=== PATIENT | female | born 1965 | race Caucasian/White ===

== ENCOUNTER 2016-08-21 02:23 | Inpatient (IN) | payer MEDICARE, MEDICAID ==
--- NOTE | 2016-08-21 03:14 | ED ---
General Adult HPI - General Chief complaint: Psychiatric Symptoms Stated complaint: Mental Health Time Seen by Provider: 08/21/16 02:25 Source: patient, EMS, RN notes reviewed, old records reviewed Mode of arrival: EMS Limitations: no limitations - History of Present Illness Initial comments: This is a 50-year-old female ER for evaluation psychiatric disease, positive suicidal thoughts, positive alcohol, patient does have history of psychiatric disease, multiple hospital admissions for psychiatric evaluation and treatment, patient has been taking all medications as prescribed, patient's poor strain secondary to intoxicated state, history obtained from EMS PD and patient chart -: days(s) Treatments Prior to Arrival: none - Related Data Home Medications Medication Instructions Recorded Confirmed ALPRAZolam [Xanax] 1 mg PO TID PRN 10/15/15 08/21/16 Aspirin 81 mg PO DAILY 10/15/15 08/21/16 Budesonide/Formoterol Fumarate 2 puff INHALATION RT-BID 10/15/15 08/21/16 [Symbicort 160-4.5 Mcg Inhaler] Clobetasol Propionate [Temovate] 1 applic TOPICAL BID 10/15/15 08/21/16 Omeprazole [PriLOSEC] 20 mg PO DAILY 10/15/15 08/21/16 Dicyclomine [Bentyl] 20 mg PO QID 08/21/16 08/21/16 Loperamide [Imodium] 4 mg PO QID 08/21/16 08/21/16 Meclizine HCl 25 mg PO TID PRN 08/21/16 08/21/16 QUEtiapine XR [SEROquel XR] 150 mg PO BID 08/21/16 08/21/16 buPROPion HCL [Wellbutrin XL] 150 mg PO DAILY 08/21/16 08/21/16 buPROPion HCL [Wellbutrin XL] 300 mg PO DAILY 08/21/16 08/21/16 cloNIDine HCL [Catapres] 0.1 mg PO BID@0600,1200 08/21/16 08/21/16 Allergies Allergy/AdvReac Type Severity Reaction Status Date / Time trazodone Allergy Anaphylaxis Verified 08/21/16 10:37 sertraline HCl [From Zoloft] AdvReac Rapid Verified 08/21/16 10:37 Heart Rate Patient : No Review of Systems ROS Statement: Those systems with pertinent positive or pertinent negative responses have been documented in the HPI. ROS Other: All systems not noted in ROS Statement are negative. Past Medical History Past Medical History: COPD, Hyperlipidemia Additional Past Medical History / Comment(s): psoriasis History of Any Multi-Drug Resistant Organisms: None Reported Past Surgical History: Section Additional Past Surgical History / Comment(s): cervical ablation, D&C, borderline personality disorder, self harm Past Anesthesia/Blood Transfusion Reactions: No Reported Reaction Past Psychological History: Anxiety, Depression, Panic Disorder Additional Psychological History / Comment(s): Personality disorder, history of cutting Smoking Status: Current every day smoker Past Alcohol Use History: Daily, Heavy Additional Past Alcohol Use History / Comment(s): Patient is a smoker of 30 cigarettes per day as she rolls her own. She has been smoking for 33 years. She denies any medical marijuana, marijuana, street drug use. She states she drinks alcohol about 2 times per month and each time she drinks to excess. Past Drug Use History: None Reported - Past Family History Father Family Medical History: No Reported History Additional Family Medical History / Comment(s): Patient does not know her father. Mother Family Medical History: Hypertension Additional Family Medical History / Comment(s): Mother is alive at age 70 with history of hypertension. Brother(s) Additional Family Medical History / Comment(s): She has one brother committed suicide. Sister(s) Additional Family Medical History / Comment(s): She has 2 sisters one has had hypertension and hysterectomy. Second sister has no major medical problems. Patient has 2 sons are healthy. General Exam Limitations: no limitations General appearance: alert, in no apparent distress, appears intoxicated Head exam: Present: atraumatic, normocephalic, normal inspection Eye exam: Present: normal appearance, PERRL, EOMI. Absent: scleral icterus, conjunctival injection, periorbital swelling ENT exam: Present: normal exam, mucous membranes moist Neck exam: Present: normal inspection. Absent: tenderness, meningismus, lymphadenopathy Respiratory exam: Present: normal lung sounds bilaterally. Absent: respiratory distress, wheezes, rales, rhonchi, stridor Cardiovascular Exam: Present: regular rate, normal rhythm, normal heart sounds. Absent: systolic murmur, diastolic murmur, rubs, gallop, clicks GI/Abdominal exam: Present: soft, normal bowel sounds. Absent: distended, tenderness, guarding, rebound, rigid Extremities exam: Present: normal inspection, full ROM, normal capillary refill. Absent: tenderness, pedal edema, joint swelling, calf tenderness Back exam: Present: normal inspection Neurological exam: Present: alert, oriented X3, CN II-XII intact Psychiatric exam: Present: normal affect, normal mood Skin exam: Present: warm, dry, intact, normal color. Absent: rash Course Vital Signs 08/21/16 08/21/16 08/21/16 02:38 06:39 08:05 Temperature 97.0 F L Pulse Rate 90 83 95 Respiratory 16 16 15 Rate Blood Pressure 152/95 128/78 147/97 O2 Sat by Pulse 99 95 93 L Oximetry Medical Decision Making - Medical Decision Making 50 female seen and evaluated by psychiatry, will be admitted for psychiatric evaluation and treatment Disposition Clinical Impression: Mood disorder, Depression, Suicidal ideation Disposition: TRANSFER TO PSYCH HOSP/UNIT Condition: Fair
[2016-08-21] MEDS ORDERED: ACETAMINOPHEN TAB 500 MG TAB PO STA (08:03)
[2016-08-21] MEDS ORDERED: IBUPROFEN 600 MG TAB PO PRN (09:41)
[2016-08-21] MEDS ORDERED: MAGNESIUM HYDROXIDE 2,400 MG/10 ML CUP PO PRN (09:43)
[2016-08-21] MEDS ORDERED: MAG HYDROX/AL HYDROX/SIMETH 30 ML CUP PO PRN (09:43)
[2016-08-21] MEDS ORDERED: buPROPion XL 300 MG TAB.ER.24H PO SCH (09:45)
[2016-08-21] MEDS ORDERED: buPROPion XL 150 MG TAB.ER.24H PO SCH (10:00)
[2016-08-21] MEDS: PANTOPRAZOLE 40 MG TABLET PO SCH ×2 (11:22→19:18)
[2016-08-21] MEDS: NICOTINE 14MG/24HR PATCH TRANSDERM SCH (11:22)
[2016-08-21] MEDS: CLOBETASOL PROP 0.05% CR 15GM TOPICAL SCH ×2 (11:22→21:35)
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
[2016-08-21] MEDS: GABAPENTIN 300 MG CAP PO SCH ×3 (11:29→21:58)
[2016-08-21] MEDS: ALPRAZolam 0.5 MG TAB PO PRN ×2 (11:30→21:35)
[2016-08-21] MEDS ORDERED: cloNIDine HCL 0.1 MG TAB PO SCH (12:00)
[2016-08-21] MEDS: DICYCLOMINE 20 MG TAB PO SCH ×3 (12:22→21:35)
[2016-08-21 12:54] LABS: Appearance,Urine Clear (Clear); Bilirubin,Urine Negative (Negative); Glucose,Urine (UA) Negative (Negative); Ketones,Urine Negative (Negative); Leukocyte Esterase,Urine Negative (Negative); Nitrite,Urine Negative (Negative); Protein,Urine Negative (Negative); Specific Gravity,Urine 1.005 (1.001-1.035); UA Billing (MACRO vs. MICRO) CHEM; Urobilinogen,Urine <2.0 mg/dL (<2.0)
--- NOTE | 2016-08-21 15:32 | CT ---
EXAMINATION TYPE: CT brain wo con DATE OF EXAM: 08/21/2016 3:27 PM COMPARISON: NONE HISTORY: 50-year-old female with facial numbness and left eye pain TECHNIQUE: Examination was done in axial plane without intravenous contrast. Coronal and sagittal reconstructio ns performed. CT DLP: 1072.3 mGycm Automated exposure control for dose reduction was used. FINDINGS: Scattered streak and beam hardening artifact such as along the posterior left parietal region and inf erior left temporal region. Within this limitation, there is no evidence of acute intracranial hemorrhage, acute ischemic change s, mass, mass-effect, or extra-axial fluid collection. There is no effacement of cerebral sulci or b emanuel subarachnoid cisterns. There is no hydrocephalus. There is no midline shift. Purcell-white matte r distinction is preserved. Paranasal sinuses and mastoid air cells are well pneumatized. Orbits and globes are intact. IMPRESSION: No acute intracranial abnormality seen.
--- NOTE | 2016-08-21 15:41 | US ---
EXAMINATION TYPE: US carotid duplex BILAT DATE OF EXAM: 08/21/2016 3:32 PM COMPARISON: NONE CLINICAL HISTORY: US. TIA, pt has no complaints at this time Mild plaque seen of the bilateral carotid bulbs. EXAM MEASUREMENTS: RIGHT: Peak Systolic Velocity (PSV) cm/sec ----- Right CCA: 72.3 ----- Right ICA: 84.5 ----- Right ECA: 143.6 ICA/CCA ratio: 1.2 RIGHT: End Diastole cm/sec ----- Right CCA: 23.5 ----- Right ICA: 34.0 ----- Right ECA: 24.1 LEFT: Peak Systolic Velocity (PSV) cm/sec ----- Left CCA: 88.9 ----- Left ICA: 97.7 ----- Left ECA: 84.0 ICA/CCA ratio: 1.1 LEFT: End Diastole cm/sec ----- Left CCA: 26.3 ----- Left ICA: 38.4 ----- Left ECA: 11.5 VERTEBRALS (direction of flow): Right Vertebral: Antegrade Left Vertebral: Antegrade IMPRESSION: No significant stenosis seen Pt moving and talking during exam Criteria for Assigning % of Stenosis / Diameter reduction (Estimation based on the indirect measurements of the internal carotid artery velocities (ICA PSV). 1. Normal (no stenosis)=ICA PSV < 125 cm/s: ratio < 2.0: ICA EDV<40 cm/s. 2. Less than 50% stenosis=ICA PSV < 125 cm/s: ratio < 2.0: ICA EDV<40 cm/s. 3. 50 to 69% stenosis=ICA PSV of 125 to 230 cm/s: ration 2.0 ? 4.0: ICA EDV 40-100 cm/s. 4. Greater than 70% stenosis to near occlusion= ICA PSV > 230 cm/s: ratio > 4.0: ICA EDV > 100 cm/s. 5. Near occlusion= ICA PSV velocities may be low or undetectable: variable ratio and ICA EDV. 6. Total occlusion=unable to detect flow.
[2016-08-21] MEDS ORDERED: hydrOXYzine PAMOATE 25 MG CAP PO STA (16:14)
[2016-08-21] MEDS: ATORVASTATIN 40 MG TAB PO SCH (20:41)
[2016-08-21] MEDS: SYMBICORT 160-4.5 MCG INHALER INHALATION SCH (21:20)
[2016-08-21] MEDS ORDERED: IBUPROFEN 400 MG TAB PO PRN (23:09)
--- NOTE | 2016-08-22 07:39 | CONS ---
DATE OF CONSULTATION: REASON FOR CONSULTATION: Left-sided facial numbness as well as left arm numbness. The patient is a 50-year-old female admitted to the psychiatric floor for severe depression. The patient is complaining of severe tingling on the left side of the face along with numbness in the left upper arm. The patient denied any fever, chills. Patient denied any nausea, vomiting. Patient denied any significant weakness. The patient denied nay other focal deficits at this point of time. Patient is not anxious, but she says she is quite anxious and patient was also complaining of nonspecific abdominal pain. Patient is already on Prilosec. Patient has multitude of symptoms consistent with psychosomatic disorder. REVIEW OF SYSTEMS: The rest of the review of systems are negative except the above mentioned symptoms. Patient's UA is negative. Past medical history is significant for COPD, psoriasis, hyperlipidemia. section, cervical ablation, anxiety, depression, panic disorder. Patient does smoke 30 cigarettes per day. Denied any alcohol abuse or any drug abuse. FAMILY HISTORY: Patient does not know any of her family history. Home medications include: 1. Alprazolam. 2. Aspirin. 3. Budesonide formoterol. 4. Clobetasol. 5. Dicyclomine. 6. Loperamide. 7. Meclizine. 8. Omeprazole. 9. Seroquel. 10. Bupropion. 11. Clonidine. PHYSICAL EXAMINATION: VITAL SIGNS: Temperature 97.7, pulse 95, respiratory rate 20, blood pressure 147/97, saturating at 94% on room air. GENERAL: The patient is alert and oriented x3, not in any acute distress. Well developed, well nourished. HEENT: Pupils are round and equally reacting to light. EOMI. No scleral icterus. No conjunctival pallor. Normocephalic, atraumatic. No pharyngeal erythema. No thyromegaly. CARDIOVASCULAR: S1 and S2 present. No murmurs, rubs, or gallops. PULMONARY: Chest is clear to auscultation, no wheezing or crackles. ABDOMEN: Soft, nontender, nondistended, normoactive bowel sounds. No palpable organomegaly. MUSCULOSKELETAL: No joint swelling or deformity. EXTREMITIES: No cyanosis, clubbing, or pedal edema. NEUROLOGICAL: Gross neurological examination did not reveal any focal deficits. SKIN: No rashes. LABORATORY DATA: Urine drug screen is positive for benzodiazepines and tricyclic antidepressants. Brain CT is essential within normal limits. Carotid Doppler is negative. ASSESSMENT AND PLAN: 1. Tingling and numbness of left side of face and left arm. I believe her symptoms are mostly psychosomatic. I do not believe any further intervention is necessary at this point of the time. The patient is already on aspirin ( ). 2. Nonspecific abdominal pain is psychosomatic again. I do not believe it is related to gastroenteritis. Patient does have irritable bowel syndrome history. Dicyclomine can be used and Imodium can be used for symptoms. 3. Severe depression and psychosis, management as per primary service. 4. Chronic obstructive pulmonary disease without any acute exacerbation. Continue with budesonide formoterol and albuterol as needed. I agree with continuation of clonidine, which contributes to her depression quite a bit. I will also order albuterol as needed for her COPD, although she probably will not require it at this point of time. Thank you for letting me participate in this patient's care. Will sign off at this point of time. Call us back if needed.
[2016-08-22] MEDS: buPROPion XL 300 MG TAB.ER.24H PO SCH (08:12)
[2016-08-22] MEDS: GABAPENTIN 300 MG CAP PO SCH ×3 (08:12→20:45)
[2016-08-22] MEDS: NICOTINE 14MG/24HR PATCH TRANSDERM SCH (08:12)
[2016-08-22] MEDS: ASPIRIN 81 MG CHEW PO SCH (08:12)
[2016-08-22] MEDS: DICYCLOMINE 20 MG TAB PO SCH ×4 (08:12→20:45)
[2016-08-22] MEDS: PANTOPRAZOLE 40 MG TABLET PO SCH (08:12)
[2016-08-22] MEDS: ALPRAZolam 0.5 MG TAB PO PRN ×3 (08:13→21:59)
[2016-08-22 09:36] LABS: Basophils % (A) 1 %; CH 29.1; CHCM 31.8; Eosinophils % (A) 0 %; HCT 40.9 % (34.0-46.0); HDW 2.71; HGB 12.6 gm/dL (11.4-16.0); Hypochromasia Slight; Luc # (Auto) 0.08; Luc % (Auto) 1; Lymphocytes # (A) 1.2 k/uL (1.0-4.8); Lymphocytes % (A) 19 %; MCH 28.3 pg (25.0-35.0); MCHC 30.8 g/dL (31.0-37.0); MCV 91.8 fL (80.0-100.0); Mean Platelet Volume 7.6; Monocytes # (A) 0.3 k/uL (0-1.0); Monocytes % (A) 5 %; Neutrophils # (A) 4.8 k/uL (1.3-7.7); Neutrophils % (A) 75 %; RBC 4.45 m/uL (3.80-5.40); RDW 14.8 % (11.5-15.5); WBC 6.5 k/uL (3.8-10.6); WBC (Perox) 6.54
[2016-08-22] MEDS: CLOBETASOL PROP 0.05% CR 15GM TOPICAL SCH ×2 (09:46→20:45)
[2016-08-22] MEDS: SYMBICORT 160-4.5 MCG INHALER INHALATION SCH ×2 (09:52→19:38)
[2016-08-22] MEDS: IPRATROPIUM-ALBUTEROL 3 ML NEB INHALATION PRN (09:52)
[2016-08-22 10:22] LABS: ALT 35 U/L (9-52); AST 35 U/L (14-36); Alkaline Phosphatase 93 U/L (38-126); Anion Gap 12 mmol/L; Blood Urea Nitrogen 11 mg/dL (7-17); Calcium 9.5 mg/dL (8.4-10.2); Carbon Dioxide 29 mmol/L (22-30); Chloride 103 mmol/L (98-107); Glucose 160 mg/dL (74-99); Non-African American GFR(MDRD) >60 (>60 ml/min/1.73 sqM); Potassium 3.9 mmol/L (3.5-5.1); Sodium 144 mmol/L (137-145); Total Bilirubin 0.7 mg/dL (0.2-1.3); Total Protein 7.6 g/dL (6.3-8.2)
--- NOTE | 2016-08-22 11:47 | P.PN ---
Progress Note - Text Interval history: The patient is found in the hallway she follows me to an interview room. She states that she felt acutely anxious last evening and the seconds handler ordered a head CT and carotid Dopplers as she complained of facial numbness. These studies were essentially normal. She does continue to be somatically preoccupied. I did have the opportunity to speak with her outpatient clinician Alecia Lynne to discuss continued medication management. Mental status exam: The patient is an overweight female she has a disheveled appearance she is dressed in hospital gowns. Eye contact is appropriate she is cooperative. Speech is spontaneous fluent she is verbose but directable. She endorses a depressed mood with hopelessness thinking she endorses significant concern over anxiety symptoms. She is endorsing no homicidal ideation. She does not present hypomanic or manic today there is no report of psychotic symptoms. Insight and judgment is impaired. She is oriented to person place and date. Plan: The patient will continue on her current medications we will initiate Pristiq 50 mg daily. We will plan to transition her off of Wellbutrin XL. We will continue the Neurontin Seroquel and Xanax. We will monitor her for safety and encourage her participation in the milieu. Vital signs reviewed. Dr. Monzon will provide coverage for this patient over the weekend.
[2016-08-22] MEDS: ACETAMINOPHEN TAB 325 MG TAB PO PRN (18:26)
[2016-08-22] MEDS: ATORVASTATIN 40 MG TAB PO SCH (20:45)
[2016-08-23] MEDS: DESVENLAFAXINE SUCCINATE 50 MG TAB.ER.24H PO SCH (08:33)
[2016-08-23] MEDS: NICOTINE 14MG/24HR PATCH TRANSDERM SCH (08:33)
[2016-08-23] MEDS: PANTOPRAZOLE 40 MG TABLET PO SCH (08:34)
[2016-08-23] MEDS: GABAPENTIN 300 MG CAP PO SCH ×3 (08:34→20:33)
[2016-08-23] MEDS: DICYCLOMINE 20 MG TAB PO SCH ×4 (08:34→20:33)
[2016-08-23] MEDS: buPROPion XL 300 MG TAB.ER.24H PO SCH (08:34)
[2016-08-23] MEDS: CLOBETASOL PROP 0.05% CR 15GM TOPICAL SCH ×2 (08:34→20:33)
[2016-08-23] MEDS: ASPIRIN 81 MG CHEW PO SCH (08:34)
[2016-08-23] MEDS: SYMBICORT 160-4.5 MCG INHALER INHALATION SCH ×2 (08:48→17:27)
[2016-08-23] MEDS: ACETAMINOPHEN TAB 325 MG TAB PO PRN (08:52)
[2016-08-23 11:12] VITALS: BMI 36.1
[2016-08-23] MEDS: IPRATROPIUM-ALBUTEROL 3 ML NEB INHALATION PRN (12:09)
[2016-08-23] MEDS ORDERED: NITROGLYCERIN SL TABS 0.4 MG TAB SUBLINGUAL STA (12:36)
[2016-08-23] MEDS: ALPRAZolam 0.5 MG TAB PO PRN ×2 (13:11→21:40)
[2016-08-23] MEDS: LACTOBACILLUS ACIDOPH & BULGAR 1 EACH PACKET PO SCH (13:23)
[2016-08-23] MEDS: MULTIVITAMINS, THERA 1 EACH TAB PO SCH (13:23)
[2016-08-23] MEDS: CHOLECALCIFEROL 1,000 UNIT TAB PO SCH (13:23)
[2016-08-23] MEDS ORDERED: INFLUENZA VACCINE (3YR+) 60 MCG/0.5 ML SYRINGE IM ONE (17:30)
--- NOTE | 2016-08-23 17:33 | PN ---
Patient is a 50-year-old admitted to psychiatric floor. I was recalled to see the patient because of the chest pain. Patient has ( ) chest pain in the midsternal area radiating to the left arm. I obtained an EKG which showed some nonspecific ST depressions in the inferior leads lead II and lead III which were not present on the old EKGs. I repeated the EKG which showed the same depression. First set of troponin is negative. Patient is known to have psychosomatic issues. I still believe it psychosomatic or anxiety related but because of these depressions I recommended consulting cardiology. The patient was given Xanax which improved her symptoms of chest pain. REVIEW OF SYSTEMS: CARDIOVASCULAR: As described in HPI. PULMONARY: Denied any shortness of breath. No cough or hemoptysis. GASTROINTESTINAL: No diarrhea, nausea or vomiting. No abdominal pain. Normoactive bowel sounds. NEUROLOGIC: No headaches, no weakness, no numbness. Psychiatric as described in HPI. Medications are reviewed. PHYSICAL EXAM: Temperature 97.0, pulse of 92, respiratory rate of 14, blood pressure 126/81. Saturating at 96% on room air. GENERAL: The patient is alert and oriented x3, not in any acute distress. Well developed, well nourished. HEENT: Pupils are round and equally reacting to light. EOMI. No scleral icterus. No conjunctival pallor. Normocephalic, atraumatic. No pharyngeal erythema. No thyromegaly. CARDIOVASCULAR: S1 and S2 present. No murmurs, rubs, or gallops. PULMONARY: Chest is clear to auscultation, no wheezing or crackles. ABDOMEN: Soft, nontender, nondistended, normoactive bowel sounds. No palpable organomegaly. MUSCULOSKELETAL: No joint swelling or deformity. EXTREMITIES: No cyanosis, clubbing, or pedal edema. NEUROLOGICAL: Gross neurological examination did not reveal any focal deficits. SKIN: No rashes. LABORATORY DATA: CBC, CMP are abnormal for mildly elevated TSH. I will obtain a T4 level. Mildly low TSH, I will obtain a T4 level. ASSESSMENT AND PLAN: 1. Chest pain and management as above. 2. Tingling and numbness when I evaluated her a couple days ago, but this is psychogenic I believe. Tingling and numbness of the left side arm and face, psychogenic. 3. Severe depression and psychosis. 4. Chronic obstructive pulmonary disease without any acute exacerbation. 5. Anxiety disorder. Management as mentioned in the interval history.
--- NOTE | 2016-08-23 19:07 | P.PN ---
Progress Note - Text Interval history: Patient seen in cross coverage today for Dr. Correa. She seems to describe that her mood is doing better. She does describe having had some chest pain earlier today with some symptoms of the left arm. She states that 2 EKGs were done and also they eduardo blood. Her troponin was less than 0.012. She states there is also been cardiology consultation ordered. She states that her chest pain has subsided more now. Mental status exam: She is alert and cooperative with the interview her speech is fluent her thought processes are organized. Her mood seems to be described as better. She denies any thoughts of harm to self or others. No evidence of active psychosis or agitation. She does not appear to be any any acute distress. Plan: We'll maintain current psychotropic medications. She has been started on Pristiq. We'll continue to cover this patient for Dr. Correa over the weekend.
[2016-08-23] MEDS: ATORVASTATIN 40 MG TAB PO SCH (20:33)
[2016-08-24] MEDS: PANTOPRAZOLE 40 MG TABLET PO SCH (08:07)
[2016-08-24] MEDS: ASPIRIN 81 MG CHEW PO SCH (08:07)
[2016-08-24] MEDS: CLOBETASOL PROP 0.05% CR 15GM TOPICAL SCH ×2 (08:08→20:12)
[2016-08-24] MEDS: buPROPion XL 300 MG TAB.ER.24H PO SCH (08:08)
[2016-08-24] MEDS: DICYCLOMINE 20 MG TAB PO SCH ×4 (08:09→20:11)
[2016-08-24] MEDS: NICOTINE 14MG/24HR PATCH TRANSDERM SCH (08:09)
[2016-08-24] MEDS: GABAPENTIN 300 MG CAP PO SCH ×2 (08:09→15:59)
[2016-08-24] MEDS: DESVENLAFAXINE SUCCINATE 50 MG TAB.ER.24H PO SCH (08:09)
[2016-08-24] MEDS: ALPRAZolam 0.5 MG TAB PO PRN ×3 (08:13→20:11)
[2016-08-24] MEDS: SYMBICORT 160-4.5 MCG INHALER INHALATION SCH ×2 (09:38→21:22)
--- NOTE | 2016-08-24 10:15 | P.CRDCN ---
History of Present Illness Consult date: 08/24/16 Chief complaint: Chest pain History of present illness: This is a pleasant 50-year-old female patient who was admitted to the psych unit with an anxiety and possible panic attack. We get involved in the care of the patient because she was experiencing recurrent chest discomfort. The patient describes chest discomfort, in the mid of the chest, as a pressure on the chest, with radiation to the left arm, and without associated symptoms of shortness of breath, dizziness or lightheadedness, or nausea or vomiting. Over the last several days the episodes have been more intense and more often. The EKG showed sinus rhythm with ST changes in the inferolateral leads and these changes are completely different from an EKG was performed in December 2015. She underwent 3 sets of cardiac enzymes came in to be unremarkable. Into above past medical history, the patient is known to have dyslipidemia. She has no hypertension. She has no previous history of CAD. She is a current smoker and she smoke about one pack per day. In view of the recurrent episodes of chest discomfort, multiple risk factors, and the abnormal EKG which reflects ischemic changes, I recommended proceeding with heart catheterization. Past Medical History Past Medical History: COPD, Hyperlipidemia Additional Past Medical History / Comment(s): psoriasis History of Any Multi-Drug Resistant Organisms: None Reported Past Surgical History: Section Additional Past Surgical History / Comment(s): cervical ablation, D&C, borderline personality disorder, self harm Past Anesthesia/Blood Transfusion Reactions: No Reported Reaction Past Psychological History: Anxiety, Depression, Panic Disorder Additional Psychological History / Comment(s): Personality disorder, history of cutting Smoking Status: Current every day smoker Past Alcohol Use History: Daily, Heavy Additional Past Alcohol Use History / Comment(s): Patient is a smoker of 30 cigarettes per day as she rolls her own. She has been smoking for 33 years. She denies any medical marijuana, marijuana, street drug use. She states she drinks alcohol about 2 times per month and each time she drinks to excess. Past Drug Use History: None Reported - Past Family History Father Family Medical History: No Reported History Additional Family Medical History / Comment(s): Patient does not know her father. Mother Family Medical History: Hypertension Additional Family Medical History / Comment(s): Mother is alive at age 70 with history of hypertension. Brother(s) Additional Family Medical History / Comment(s): She has one brother committed suicide. Sister(s) Additional Family Medical History / Comment(s): She has 2 sisters one has had hypertension and hysterectomy. Second sister has no major medical problems. Patient has 2 sons are healthy. Medications and Allergies Home Medications Medication Instructions Recorded Confirmed Type ALPRAZolam [Xanax] 1 mg PO TID PRN 10/15/15 08/21/16 History Aspirin 81 mg PO DAILY 10/15/15 08/21/16 History Budesonide/Formoterol Fumarate 2 puff INHALATION RT-BID 10/15/15 08/21/16 History [Symbicort 160-4.5 Mcg Inhaler] Clobetasol Propionate [Temovate] 1 applic TOPICAL BID 10/15/15 08/21/16 History Omeprazole [PriLOSEC] 20 mg PO DAILY 10/15/15 08/21/16 History Dicyclomine [Bentyl] 20 mg PO QID 08/21/16 08/21/16 History Loperamide [Imodium] 4 mg PO QID 08/21/16 08/21/16 History Meclizine HCl 25 mg PO TID PRN 08/21/16 08/21/16 History QUEtiapine XR [SEROquel XR] 150 mg PO BID 08/21/16 08/21/16 History buPROPion HCL [Wellbutrin XL] 150 mg PO DAILY 08/21/16 08/21/16 History buPROPion HCL [Wellbutrin XL] 300 mg PO DAILY 08/21/16 08/21/16 History cloNIDine HCL [Catapres] 0.1 mg PO BID@0600,1200 08/21/16 08/21/16 History Cholecalciferol [Vitamin D3] 5,000 mg PO DAILY 08/22/16 08/22/16 History L.acidoph,Paracasei, B.lactis 1 tab PO DAILY 08/22/16 08/22/16 History [Probiotic] Multivitamins, Thera [Multivitamin] 1 tab PO DAILY 08/22/16 08/22/16 History Allergies Allergy/AdvReac Type Severity Reaction Status Date / Time trazodone Allergy Anaphylaxis Verified 08/21/16 10:37 sertraline HCl [From Zoloft] AdvReac Rapid Verified 08/21/16 10:37 Heart Rate Physical Exam Vitals: Vital Signs Temp Pulse Pulse Resp BP BP 08/24/16 08:15 107 H 18 146/84 08/24/16 07:08 97.7 F 96 18 140/76 08/23/16 12:18 92 08/23/16 12:09 86 08/23/16 11:00 97.5 F L 92 14 126/81 08/23/16 10:40 97.5 F L 92 18 126/81 Intake and Output 08/23/16 08/24/16 08/24/16 22:59 06:59 14:59 Other: Weight 97.7 kg Patient Weight 08/25/16 06:59 Weight 97.7 kg - Constitutional General appearance: no acute distress - Respiratory Respiratory: bilateral: CTA - Cardiovascular Rhythm: regular Heart sounds: normal: S1, S2 Results 08/22/16 09:03 08/22/16 09:03 Cardiac Enzymes 08/23/16 08/23/16 Range/Units 11:27 20:10 Troponin I <0.012 <0.012 (0.000-0.034) ng/mL Current Medications Generic Name Dose Route Start Last Admin Trade Name Freq PRN Reason Stop Dose Admin Acetaminophen 650 mg 08/22/16 17:29 08/23/16 08:52 Tylenol Tab PO 650 mg Q6HR PRN Administration Fever and/ or Pain Al Hydroxide/Mg Hydroxide 30 ml 08/21/16 09:43 Maalox PO Q4HR PRN GI Upset Albuterol/Ipratropium 3 ml 08/21/16 21:41 08/23/16 12:09 Duoneb 0.5 Mg-3 Mg/3 Ml Soln INHALATION 3 ml RT-QID PRN Administration Shortness Of Breath Or Wheezing Alprazolam 1 mg 08/21/16 11:13 08/24/16 08:13 Xanax PO 1 mg TID PRN Administration Anxiety Aspirin 81 mg 08/22/16 09:00 08/24/16 08:07 Aspirin PO 81 mg DAILY RIA Administration Atorvastatin Calcium 40 mg 08/21/16 21:00 08/23/16 20:33 Lipitor PO 40 mg HS RIA Administration Budesonide/Formoterol Fumarate 2 puff 08/21/16 20:00 08/24/16 09:38 Symbicort 160-4.5 Mcg Inhaler INHALATION 2 puff RT-BID [facility] Administration Bupropion HCl 300 mg 08/22/16 09:00 08/24/16 08:08 Wellbutrin Xl PO 300 mg DAILY [facility] Administration Cholecalciferol 5,000 unit 08/23/16 12:00 08/23/16 13:23 Vitamin D3 PO 5,000 unit 1200 [facility] Administration Clobetasol Propionate 1 applic 08/21/16 10:00 08/24/16 08:08 Temovate TOPICAL Not Given BID [facility] Desvenlafaxine Succinate 50 mg 08/23/16 09:00 08/24/16 08:09 Pristiq Er PO 50 mg DAILY [facility] Administration Dicyclomine HCl 20 mg 08/21/16 13:00 08/24/16 08:09 Bentyl PO 20 mg QID [facility] Administration Gabapentin 300 mg 08/21/16 11:15 08/24/16 08:09 Neurontin PO Not Given TID [facility] Lactobacillus Acidoph/Bulgaricus 1 each 08/23/16 12:00 08/23/16 13:23 Lactinex PO 1 each 1200 RIA Administration Magnesium Hydroxide 2,400 mg 08/21/16 09:43 Milk Of Magnesia PO DAILY PRN Constipation Multivitamins 1 each 08/23/16 12:00 08/23/16 13:23 Theragran PO 1 each 1200 RIA Administration Nicotine 1 patch 08/21/16 10:00 08/24/16 08:09 Habitrol 14mg/24hr Patch TRANSDERM Not Given DAILY [facility] Pantoprazole Sodium 40 mg 08/22/16 07:30 08/24/16 08:07 Protonix PO 40 mg AC-BRKFST [facility] Administration Pneumococcal Polyvalent Vaccine 25 mcg 08/24/16 13:30 08/24/16 08:11 Pneumococcal Vacc-Pneumovax 23 IM 08/24/16 13:31 Not Given .ONCE ONE Quetiapine Fumarate 150 mg 08/21/16 10:00 08/24/16 08:09 Seroquel Xr PO 150 mg BID [facility] Administration Intake and Output 08/23/16 08/24/16 08/24/16 22:59 06:59 14:59 Other: Weight 97.7 kg Patient Weight 08/25/16 06:59 Weight 97.7 kg 08/22/16 09:03 08/22/16 09:03 Assessment and Plan Plan: Assessment #1 recurrent chest discomfort #2 significant history of smoking #3 dyslipidemia Plan #1 I recommended proceeding with a coronary angiogram #2 continue following up with the patient
[2016-08-24] MEDS: CHOLECALCIFEROL 1,000 UNIT TAB PO SCH (11:45)
[2016-08-24] MEDS: MULTIVITAMINS, THERA 1 EACH TAB PO SCH (11:45)
[2016-08-24] MEDS: LACTOBACILLUS ACIDOPH & BULGAR 1 EACH PACKET PO SCH (11:46)
[2016-08-24] MEDS: ACETAMINOPHEN TAB 325 MG TAB PO PRN (11:47)
[2016-08-24] MEDS ORDERED: PNEUMOCOCCAL VACC-PNEUMOVAX 23 25 MCG/0.5 ML VIAL IM ONE (13:30)
[2016-08-24] MEDS ORDERED: LOPERAMIDE 2 MG CAP PO PRN (14:54)
--- NOTE | 2016-08-24 20:04 | P.PN ---
Progress Note - Text Interval history: Patient seen in [facility] today in for Dr. Correa. She reports that she did see the senior software quality engineer for consultation. Cardiac catheterization has been recommended. She does have some anxiety about this which we did process. She reports that she does not want to take the Neurontin because when she started taking it she was "freaking out." She has been refusing the Neurontin. Mental status exam: She is alert and cooperative with the interview. Her speech is fluent, not rapid or pressured. Thought processes organized. Her mood she describes as "fine." She does not voice any thoughts of harm to self or others. She does not verbalize any delusions. She does not show any agitation. Plan: Dr. Correa to resume care this patient starting tomorrow. Neurontin has been discontinued. She voices interest in getting back on clonidine which she had been on as an outpatient. She will discuss further with Dr. Correa. Merchandise Carrier has recommended cardiac cath.
[2016-08-24] MEDS: ATORVASTATIN 40 MG TAB PO SCH (20:11)
[2016-08-25 06:35] VITALS: BP 125/81; PULSE 83; RESP 16; TEMP 98.1
[2016-08-25] MEDS ORDERED: SODIUM CHLORIDE 0.9% 1,000 ML in EMPTY BAG 1 BAG IV ONE (07:57)
[2016-08-25] MEDS ORDERED: ATORVASTATIN 40 MG TAB PO STA (07:57)
[2016-08-25] MEDS ORDERED: ALPRAZolam 0.5 MG TAB PO PRN (07:57)
[2016-08-25] MEDS ORDERED: ALPRAZolam 0.25 MG TAB PO PRN (07:57)
[2016-08-25] MEDS ORDERED: NITROGLYCERIN SL TABS 0.4 MG TAB SUBLINGUAL PRN (07:57)
[2016-08-25] MEDS ORDERED: ASPIRIN 325 MG TAB PO STA (07:57)
--- NOTE | 2016-08-25 08:51 | P.DS ---
Providers Date of admission: 08/21/16 09:31 Expected date of discharge: 08/25/16 Attending physician: Joe Correa Consults: 08/21/16 09:43 Consult Physician Routine Consulting Provider: Roberth Dalton Consult Reason/Comments: H and P Do you want consulting provider notified?: Yes 08/23/16 16:30 Consult Physician Routine Consulting Provider: Clemente Guzman Consult Reason/Comments: abnormal EKG and chest pain Do you want consulting provider notified?: Already Contacted Primary care physician: Vipul Adkins - Discharge Diagnosis(es) (1) Major depressive disorder, recurrent severe without psychotic features Current Visit: Yes Status: Acute Priority: High (2) Panic disorder with agoraphobia Current Visit: Yes Status: Acute Priority: High (3) Alcohol use disorder Current Visit: Yes Status: Acute Priority: High Hospital Course: Brief summary of admission note: The patient was admitted to the mental health unit through the emergency room stating she was "freaking out". She reports that she was feeling depressed overwhelmed and crying all the time. She had reported "I'm scared to to but I have no life". She had hopeless thoughts, she reported decreased appetite, low energy. She reported she was isolating at home. She describes a significant amount of anxiety in the form of panic attacks which limits her activity. She has had numerous somatic concerns. For full details please refer to my psychiatric evaluation dated 12/2016. Summary of hospital course: The patient was admitted to the mental health unit she is here voluntarily. Her symptoms were reviewed as well as medication options. We decided to discontinue the clonidine and retrial Neurontin. She ultimately felt uncomfortable with that medication and it was discontinued. I was able to speak with her outpatient clinician Alecia Bill via phone to coordinate care. We discussed utilizing Pristiq in place of Wellbutrin. The patient was seen in medical consultation and subsequently cardiology. She underwent a CT of her head for the complaint of facial numbness which was grossly normal and underwent carotid Dopplers which were grossly normal. She reported chest discomfort she was seen by cardiology and they are recommending a cardiac catheterization today. The patient states that she has no acute suicidal ideation intent or plan and states that she is through her most recent crisis. She states when she cut herself it was not to but part of her coping skill set. During the stay we discussed DBT principles. She did participate in a support meeting over the weekend. Mental status exam: The patient is an overweight female she is dressed in hospital gowns. Hygiene grooming adequate. She seated calmly and is in no acute distress. Eye contact is good speech is fluent and spontaneous verbose but easily directable. Thought process for the most part is linear she can be circumstantial at times but again directable. She states that her mood is anxious about the cardiac catheterization but she is reporting no acute suicidal ideation intent or plan. She is reporting no homicidal ideation intent or plan. She does not appear hypomanic or manic there is no evidence of psychosis she reports no symptoms of psychosis. Insight and judgment grossly intact. Cognitively she is alert and oriented to person place and date she has remained cognitively stable during the course of the hospitalization. Short- term memory grossly intact she is able to remember details from conversations that took place 1 and 2 days ago. There is no demonstration of any verbal or physical aggressiveness. Affect is appropriately expressive. Impressions 1. Major depressive disorder recurrent severe without psychosis, panic disorder with agoraphobia, alcohol use disorder, marijuana use disorder 2. Borderline personality disorder traits 3. Presumed coronary artery disease, psoriasis, GERD, COPD, hyperlipidemia 4. Psychosocial dysfunction secondary to psychiatric symptoms including personality disorder traits Plan: The patient will be discharged mental health unit. We will continue Pristiq 50 mg daily we will taper her off of Wellbutrin XL and she feels uncomfortable with that medication. She will continue on Seroquel XR 150 mg bid and Xanax 1 mg 3 times daily. She will resume outpatient psychotherapy and medication management services through [facility]. Medically speaking she will be transferred to the observation unit and will likely undergo cardiac catheterization today. There is no imminent safety risk she is appropriate for discharge from our service back to outpatient care. She will benefit most from continued participation in DBT and developing coping skills. She is instructed not to use any alcohol or marijuana. Use of these substances elevates her safety risk. Patient Condition at Discharge: Stable Plan - Discharge Summary New Discharge Prescriptions: Desvenlafaxine Succinate [Pristiq ER] 50 mg PO DAILY #30 tab.er.24h Nicotine 14Mg/24Hr Patch [Habitrol] 1 patch TRANSDERM DAILY #14 patch QUEtiapine XR [SEROquel XR] 150 mg PO BID #60 tab.er.24h buPROPion XL [Wellbutrin Xl] 150 mg PO DAILY #6 tab.er.24h Discharge Medication List ALPRAZolam [Xanax] 1 mg PO TID PRN 10/15/15 [History] Aspirin 81 mg PO DAILY 10/15/15 [History] Budesonide/Formoterol Fumarate [Symbicort 160-4.5 Mcg Inhaler] 2 puff INHALATION RT-BID 10/15/15 [History] Clobetasol Propionate [Temovate] 1 applic TOPICAL BID 10/15/15 [History] Omeprazole [PriLOSEC] 20 mg PO DAILY 10/15/15 [History] Dicyclomine [Bentyl] 20 mg PO QID 08/21/16 [History] Loperamide [Imodium] 4 mg PO QID 08/21/16 [History] Meclizine HCl 25 mg PO TID PRN 08/21/16 [History] Cholecalciferol [Vitamin D3] 5,000 mg PO DAILY 08/22/16 [History] L.acidoph,Paracasei, B.lactis [Probiotic] 1 tab PO DAILY 08/22/16 [History] Multivitamins, Thera [Multivitamin] 1 tab PO DAILY 08/22/16 [History] Atorvastatin [Lipitor] 40 mg PO HS tab 08/25/16 [Rx] Desvenlafaxine Succinate [Pristiq ER] 50 mg PO DAILY #30 tab.er.24h 08/25/16 [Rx ] Nicotine 14Mg/24Hr Patch [Habitrol] 1 patch TRANSDERM DAILY #14 patch 08/25/16 [ Rx] Nitroglycerin Sl Tabs [Nitrostat] 0.4 mg SUBLINGUAL Q5M PRN #0 tab 08/25/16 [Rx] QUEtiapine XR [SEROquel XR] 150 mg PO BID #60 tab.er.24h 08/25/16 [Rx] buPROPion XL [Wellbutrin Xl] 150 mg PO DAILY #6 tab.er.24h 08/25/16 [Rx] Follow up Appointment(s)/Referral(s): Vipul Adkins MD [Primary Care Provider] - 1 Week
[2016-08-25] MEDS: SYMBICORT 160-4.5 MCG INHALER INHALATION SCH (09:28)
== END 2016-08-25 09:50 | disposition home or self-care (01) | DRG 885 ==
LOC: EC 02:23 → 3MHU 09:31
PROVIDERS: ADMIT Psychiatry & Neurology Psychiatry; ATTEND Psychiatry & Neurology Psychiatry
DX: F33.2 Major depressive disorder, recurrent severe without psychotic features (principal); R45.851 Suicidal ideations; F29 Unspecified psychosis not due to a substance or known physiological condition; J44.9 Chronic obstructive pulmonary disease, unspecified; F40.01 Agoraphobia with panic disorder; F60.3 Borderline personality disorder; F60.9 Personality disorder, unspecified; R10.9 Unspecified abdominal pain; M79.7 Fibromyalgia; R94.6 Abnormal results of thyroid function studies; R07.9 Chest pain, unspecified; F45.9 Somatoform disorder, unspecified; F41.9 Anxiety disorder, unspecified; K58.9 Irritable bowel syndrome, unspecified; G89.29 Other chronic pain; E78.5 Hyperlipidemia, unspecified; F17.210 Nicotine dependence, cigarettes, uncomplicated; R94.31 Abnormal electrocardiogram [ECG] [EKG]; F12.90 Cannabis use, unspecified, uncomplicated; L40.9 Psoriasis, unspecified; K21.9 Gastro-esophageal reflux disease without esophagitis; I25.10 Atherosclerotic heart disease of native coronary artery without angina pectoris; R20.0 Anesthesia of skin; Z91.5 Personal history of self-harm; Z79.82 Long term (current) use of aspirin; Z82.49 Family history of ischemic heart disease and other diseases of the circulatory system; Z71.6 Tobacco abuse counseling; Z88.8 Allergy status to other drugs, medicaments and biological substances; Z79.51 Long term (current) use of inhaled steroids; Z79.899 Other long term (current) drug therapy; Z81.8 Family history of other mental and behavioral disorders
CPT/HCPCS: 70450; 80053; 80306; 81003; 81025; 82075; 84439; 84443; 84484; 85025; 93005; 93880; 94640; 99285

== ENCOUNTER 2016-08-25 08:25 | Observation (INO) | payer MEDICARE, OTHER ==
[2016-08-25] MEDS ORDERED: ALPRAZolam 0.25 MG TAB PO PRN (14:21)
[2016-08-25] MEDS ORDERED: ALPRAZolam 0.5 MG TAB PO PRN (14:21)
[2016-08-25] MEDS ORDERED: ASPIRIN 325 MG TAB PO STA (14:21)
[2016-08-25] MEDS ORDERED: SODIUM CHLORIDE 0.9% 1,000 ML in EMPTY BAG 1 BAG IV ONE (14:21)
[2016-08-25] MEDS ORDERED: ATORVASTATIN 80 MG TAB PO STA (14:21)
[2016-08-25] MEDS ORDERED: NITROGLYCERIN SL TABS 0.4 MG TAB SUBLINGUAL PRN ×2 (14:21→19:27)
--- NOTE | 2016-08-25 15:59 | P.PN ---
Subjective Principal diagnosis: Chest pain This is a pleasant 50-year-old female patient was initially admitted to the psych unit with an anxiety and panic attack was experiencing chest discomfort. She describes chest discomfort, in the mid of the chest, as a pressure on the chest was some radiation to the left arm and without any associated symptoms. The cardiac enzymes were checked and came in to be within normal limits. The EKG showed sinus mechanism with ST changes in the inferolateral leads seems to be new. I recommended proceeding with heart catheterization to rule out any severe underlying CAD. Initially the patient was scheduled to have the heart catheterization but she is quite concerned about it and she would like to proceed with a stress test. I am going to schedule the patient to undergo Lexiscan Cardiolite tomorrow morning. Objective - Vital Signs Vital signs: Vital Signs Temp 98.1 F 08/25/16 15:40 Pulse 90 08/25/16 15:40 Resp 20 08/25/16 15:40 BP 169/75 08/25/16 15:40 Pulse Ox 95 08/25/16 15:40 Intake & Output 08/24/16 08/25/16 08/25/16 18:59 06:59 18:59 Weight 96.7 kg - Constitutional General appearance: Present: no acute distress - Respiratory Respiratory: bilateral: CTA - Cardiovascular Rhythm: regular Heart sounds: normal: S1, S2 Assessment and Plan Plan: Assessment #1 recurrent chest discomfort #2 significant history of smoking Plan #1 the patient does not want to proceed with heart catheterization #2 I am going to schedule the patient to undergo Lexiscan Cardiolite tomorrow.
[2016-08-25] MEDS ORDERED: MECLIZINE 25 MG TAB PO PRN (19:27)
[2016-08-25 20:26] LABS: Anion Gap 10 mmol/L; Blood Urea Nitrogen 8 mg/dL (7-17); Calcium 9.5 mg/dL (8.4-10.2); Carbon Dioxide 30 mmol/L (22-30); Chloride 103 mmol/L (98-107); Glucose 100 mg/dL (74-99); Non-African American GFR(MDRD) >60 (>60 ml/min/1.73 sqM); Sodium 143 mmol/L (137-145)
[2016-08-25] MEDS: ALPRAZolam 0.5 MG TAB PO PRN (20:30)
[2016-08-25] MEDS: DICYCLOMINE 20 MG TAB PO SCH (20:31)
[2016-08-25] MEDS: SYMBICORT 160-4.5 MCG INHALER INHALATION SCH (20:46)
[2016-08-25] MEDS ORDERED: ATORVASTATIN 40 MG TAB PO SCH (21:00)
--- NOTE | 2016-08-25 22:57 | HP ---
DATE OF ADMISSION: 08/25/2016 PRESENTING COMPLAINT: Chest pain. HISTORY OF PRESENTING COMPLAINT: This is a 50-year-old patient of Dr. Adkins whose chronic stable medical conditions include COPD, GERD, hyperlipidemia, vertigo, psoriasis, irritable bowel syndrome. Patient was just in the psychiatry unit for depression and was discharged today. There patient had chest pain for about 4 days; had some questionable EKG changes. Cardiology had decided to proceed with cardiac catheterization. At this point, patient did not want cardiac catheterization, so they decided to do a stress test. The pain is present in the left infraclavicular area, on and off, even present at rest. Denies shortness of breath. Occasionally gets dizzy. Perspiring. At the same time, patient states she does not feed herself; gets a tingling sensation all over the body. Her sense of smell is off; does not feel like eating food. There has not been really much change in her medications otherwise. She is also troubled with irritable bowel syndrome and has seen Dr. Holland as an outpatient. REVIEW OF SYSTEMS: CONSTITUTIONAL: None. HEENT: Altered smell sometimes. RESPIRATORY: None. CARDIOVASCULAR: As above. GASTROINTESTINAL: Some nausea and as above. GENITOURINARY: None. MUSCULOSKELETAL: None. DERMATOLOGIC: None. HEMATOLOGIC: None. LYMPHATIC: None. PSYCHIATRY: Depression. NEUROLOGICAL: Some numbness and tingling all over, she describes. PAST MEDICAL HISTORY: 1. COPD. 2. GERD. 3. Hyperlipidemia. 4. Vertigo. 5. Psoriasis. 6. Irritable bowel syndrome. 7. Depression. PAST SURGICAL HISTORY: 1. . 2. Laser surgery on cervix for dysplasia. SOCIAL HISTORY: Patient smoked about 2-1/2 packs a day for the last 35 years. Alcohol occasionally. Lives with her son. Patient is on Disability. She drinks very occasionally. FAMILY HISTORY: Reviewed; noncontributory to presentation. HOME MEDICATIONS: 1. Wellbutrin XL 150 mg p.o. daily. 2. Seroquel XL 150 mg p.o. b.i.d. 3. Prilosec 20 mg p.o. daily. 4. Nitrostat 0.4 sublingually q.5 p.r.n. 5. Nicotine 14 mg patch. 6. Multivitamin 1 tablet p.o. daily. 7. Meclizine 25 mg p.o. t.i.d. p.r.n. 8. Imodium 4 mg p.o. q.i.d. 9. Probiotic 1 tablet p.o. daily. 10. Bentyl 20 mg p.o. q.i.d. 11. Pristiq ER 50 mg p.o. daily. 12. Temovate 1 application topically b.i.d. 13. Vitamin D3 5000 units p.o. daily. 14. Symbicort 160/4.5 two puffs b.i.d. 15. Lipitor 40 mg p.o. at bedtime. 16. Aspirin 81 mg p.o. daily. 17. Xanax 1 mg p.o. t.i.d. p.r.n. ALLERGIES: 1. TRAZODONE. 2. ZOLOFT. On examination, temperature 98.1, pulse 90, respiration 20, blood pressure 169/75, pulse ox 95% on room air. GENERAL APPEARANCE: Well built. BMI of 34.4. Lying in bed, somewhat anxious-appearing. EYES: Pupils equal. Conjunctivae normal. HEENT: External appearance of ears and nose normal. Oral cavity normal. NECK: JVD not raised. Mass not palpable. RESPIRATORY: Effort normal. LUNGS: Slightly diminished breath sounds. CARDIOVASCULAR: First and second sounds normal. No edema. ABDOMEN: Soft, nontender. Liver and spleen not palpable. LYMPHATIC: No lymph node palpable in neck or axillae. PSYCHIATRY: Alert and oriented x3. Mood and affect normal. NEUROLOGICAL: Pupils equal. Cranial nerves grossly intact. Power and sensation grossly intact. INVESTIGATIONS: Blood work is pending. ASSESSMENT: 1. Somewhat atypical; need to rule out coronary artery disease, as this could be unstable angina in a patient whose risk factors include patient being a smoker. 2. Chronic obstructive pulmonary disease in a current smoker. 3. Chronic nicotine dependence. Patient is a cigarette smoker. 4. Gastroesophageal reflux disease. 5. Hyperlipidemia. 6. Psoriasis, chronic, bilateral. 7. Chronic irritable bowel syndrome. 8. Depression not otherwise specified. PLAN: Home medications are resumed. Cardiology is consulted. They are planning to do a stress test. Given patient's neurological symptoms of numbness, tingling all over, not feeling right, abnormal sense of smell, we will also do an MRI of the brain. Patient has no other focal findings otherwise. Care was discussed in detail with the patient. Cardiology was consulted.
[2016-08-26] MEDS: NICOTINE 14MG/24HR PATCH TRANSDERM SCH ×2 (00:34→10:48)
[2016-08-26] MEDS: CLOBETASOL PROP 0.05% CR 15GM TOPICAL SCH ×3 (00:34→20:35)
[2016-08-26] MEDS ORDERED: REGADENOSON 0.4 MG/5 ML SYRINGE IV ONE (01:00)
[2016-08-26 02:48] LABS: Creatine Kinase 113 U/L (30-135)
[2016-08-26 03:01] LABS: Creatine Kinase MB 1.1 ng/mL (0.0-2.4); Troponin I <0.012 ng/mL (0.000-0.034)
[2016-08-26] MEDS: ALPRAZolam 0.5 MG TAB PO PRN ×3 (03:21→20:16)
[2016-08-26 08:25] LABS: Creatine Kinase 107 U/L (30-135)
[2016-08-26 08:37] LABS: Creatine Kinase MB 0.9 ng/mL (0.0-2.4); Troponin I <0.012 ng/mL (0.000-0.034)
[2016-08-26] MEDS: SYMBICORT 160-4.5 MCG INHALER INHALATION SCH ×2 (08:48→19:14)
[2016-08-26] MEDS ORDERED: AMINOPHYLLINE 500 MG/20 ML VIAL IV PRN (09:00)
[2016-08-26] MEDS: buPROPion XL 150 MG TAB.ER.24H PO SCH (10:47)
[2016-08-26] MEDS: DICYCLOMINE 20 MG TAB PO SCH ×4 (10:47→20:35)
[2016-08-26] MEDS: PANTOPRAZOLE 40 MG TABLET PO SCH (10:48)
[2016-08-26] MEDS: DESVENLAFAXINE SUCCINATE 50 MG TAB.ER.24H PO SCH (10:48)
--- NOTE | 2016-08-26 11:17 | NM ---
EXAMINATION TYPE: NM stress lexiscan Cardiolite DATE OF EXAM: 08/26/2016 10:39 AM COMPARISON: NONE HISTORY: Chest pain per order. History of hypercholesterolemia, family history of coronary artery dis ease, history of COPD, and tobacco use presents with chest pain TECHNIQUE: After the intravenous administration of 11 mCi Tc 99m Sestamibi - Cardiolite resting SPEC T images acquired 60 minutes post injection. The patient received 0.4mg Lexiscan, 26.9 mCi Tc 99m Sestamibi - Stress images obtained [address] injection FINDINGS: Review of stress and rest SPECT images demonstrates no distinct perfusion abnormality. Gated analysi s shows normal wall motion with an estimated left ventricular ejection fraction of 51%. IMPRESSION: No scintigraphic evidence for reversible ischemia.
--- NOTE | 2016-08-26 11:23 | EST ---
DATE OF SERVICE: 08/26/2016 AGE: 50Y SEX: F HT: 5'5" WT: 213 lbs. Protocol Gamaliel: Other: Lexiscan Cardiolite Stage: Dur. of Exercise: *Heart Rate Blood Pressure *Rest: 88 Rest: 132/76 * *Max. Achieved: 115 Maximum BP: 136/76 85% PMHR: 145 100% PMHR: 170 *METS: INDICATIONS: Coronary artery disease. MEDICATIONS: Baseline EKG revealed sinus mechanism with inferolateral nonspecific ST and T wave abnormality. With Lexiscan administration, heart rate changed from 88 to 115 beats and blood pressure was around 130/70. EKG remained inconclusive. The patient did not have angina. By EKG criteria, this is considered as an inconclusive stress study because of resting EKG changes. This is therefore an inconclusive Lexiscan stress test by EKG criteria. The nuclear scan results, which are more pertinent, will be reported by the radiologist.
[2016-08-26 12:01] VITALS: BMI 34.4
[2016-08-26] MEDS: ASPIRIN 81 MG CHEW PO SCH (12:21)
[2016-08-26] MEDS ORDERED: ACETAMINOPHEN TAB 325 MG TAB PO PRN (12:43)
[2016-08-26] MEDS ORDERED: LORazepam 2 MG/ML SYRINGE IV STA (15:55)
--- NOTE | 2016-08-26 17:01 | MR ---
MR brain without contrast HISTORY: Abnormal smell, tingling all over Correlation to head CT 21 August 2016 Multiplanar multisequence imaging obtained through the brain. There is no restricted diffusion to suggest subacute ischemia. There is no hemorrhage or hydrocephalu s. Brain signal is maintained. There is no mass effect. There are normal vascular flow voids. Mild in flammatory change present in the ethmoid air cells, there may be a mucous retention cyst or polyp in the right maxillary sinus. Cerebellopontine angles, corpus callosum, pituitary, cervical medullary ju nction are normal. IMPRESSION: Normal brain MRI
[2016-08-26 22:17] VITALS: RESP 16
--- NOTE | 2016-08-27 08:19 | PN ---
DATE OF SERVICE: 08/26/2016 PRESENTING COMPLAINT: Multiple symptoms. INTERVAL HISTORY: This patient was seen by me yesterday on 08/26/16. Patient presented with some atypical chest pain and multitude of symptoms. When I saw the patient, MRI is still pending. Stress test did come back to be negative. The patient is definitely sleep deprived and some of the symptoms could well be because of that. She is not sleeping well. Review systems done for constitutional, cardiovascular, GI, pulmonary; relevant findings as above. Current medications are reviewed. On examination, temperature 98.6, pulse 74, [id number], blood pressure 135/80, pulse ox 96% on room air. GENERAL APPEARANCE: Lying in bed, comfortable. EYES: Pupils equal. Conjunctivae normal. NECK: JVD not raised. Mass not palpable. RESPIRATORY: Effort normal. LUNGS: Slightly decreased breath sounds. CARDIOVASCULAR: First and second sounds normal. No edema. ABDOMEN: Soft, nontender. Liver and spleen not palpable. NEUROLOGICAL: No focal symptoms. INVESTIGATIONS: Stress test is negative. Troponin is negative. Pending MRI. ASSESSMENT: 1. Left anterior chest wall pain, probably musculoskeletal. Stress test has come back negative. 2. Chronic obstructive pulmonary disease in a current smoker. 3. Chronic nicotine dependence. Patient is a cigarette smoker. 4. Gastroesophageal reflux disease. 5. Hyperlipidemia. 6. Psoriasis, chronic, bilateral. 7. Chronic irritable bowel syndrome. 8. Depression, not otherwise specified. 9. Sleep deprivation, possibly causing psychosomatic features. PLAN: Patient was told to improve her sleep pattern. In the meantime, MRI is pending. We will await the results of this.
[2016-08-27] MEDS: PANTOPRAZOLE 40 MG TABLET PO SCH (08:43)
[2016-08-27] MEDS: DICYCLOMINE 20 MG TAB PO SCH ×2 (08:43→15:04)
[2016-08-27] MEDS: ASPIRIN 81 MG CHEW PO SCH (08:43)
[2016-08-27] MEDS: DESVENLAFAXINE SUCCINATE 50 MG TAB.ER.24H PO SCH (08:44)
[2016-08-27] MEDS: buPROPion XL 150 MG TAB.ER.24H PO SCH (08:44)
[2016-08-27] MEDS: ALPRAZolam 0.5 MG TAB PO PRN (08:49)
--- NOTE | 2016-08-27 08:49 | P.PN ---
Subjective Principal diagnosis: Chest pain This is a pleasant 50-year-old female patient was initially admitted to the psych unit with an anxiety and panic attack was experiencing chest discomfort. She describes chest discomfort, in the mid of the chest, as a pressure on the chest was some radiation to the left arm and without any associated symptoms. The cardiac enzymes were checked and came in to be within normal limits. The EKG showed sinus mechanism with ST changes in the inferolateral leads seems to be new. I recommended proceeding with heart catheterization to rule out any severe underlying CAD. Initially the patient was scheduled to have the heart catheterization but she is quite concerned about it and she would like to proceed with a stress test. The patient underwent myocardial perfusion stress test which came in to be unremarkable for ischemia. From the cardiovascular standpoint of view, she can be discharged home. I would like to get the patient up and around before and make sure that she is pain-free before she is going home. I would follow-up with the patient next week in the office and if she continues to have a chest discomfort I would consider doing a heart catheterization on her. Objective - Vital Signs Vital signs: Vital Signs Temp 98.8 F 08/27/16 04:00 Pulse 89 08/27/16 04:00 Resp 16 08/27/16 04:00 BP 133/74 08/27/16 04:00 Pulse Ox 96 08/27/16 04:00 Intake & Output 08/26/16 08/27/16 08/27/16 18:59 06:59 18:59 Intake Total 455 Balance 455 Weight 96.7 kg Intake: Oral 455 Other: Voiding Method Toilet Toilet # Voids 2 2 - Constitutional General appearance: Present: no acute distress - Respiratory Respiratory: bilateral: CTA - Cardiovascular Rhythm: regular Heart sounds: normal: S1, S2 - Labs CBC & Chem 7: 08/25/16 20:02 Assessment and Plan Plan: Assessment #1 recurrent chest discomfort #2 significant history of smoking Plan #1 the patient does not want to proceed with heart catheterization #2 the patient underwent stress test came in to be unremarkable #3 from the cardiac standpoint she can be discharged home
[2016-08-27 09:21] VITALS: BP 127/64; PULSE 67; TEMP 98.3
[2016-08-27] MEDS: NICOTINE 14MG/24HR PATCH TRANSDERM SCH (15:03)
[2016-08-27] MEDS: CLOBETASOL PROP 0.05% CR 15GM TOPICAL SCH (15:03)
--- NOTE | 2016-08-27 22:50 | DS ---
DATE OF ADMISSION: 08/25/2016 DATE OF DISCHARGE: 08/27/2016 FINAL DIAGNOSES: 1. Left anterior chest wall pain, probable musculoskeletal. 2. Chronic obstructive pulmonary disease in a current smoker. 3. Chronic nicotine dependence. Patient is an active cigarette smoker. 4. Gastroesophageal reflux disease. 5. Hyperlipidemia. 6. Psoriasis, chronic bilateral. 7. Chronic irritable bowel syndrome. 8. Depression, not otherwise specified. 9. Sleep deprivation, probably causing psychosomatic features. HOSPITAL COURSE: This patient presented with left-sided chest pain following discharge from the psych unit. Patient underwent a stress test that was negative. Patient seems to be sleep deprived, multiple psychosomatic features. I did do MRI of the brain which came to back to be negative. CONSULTATION: Dr. Guzman from cardiology. Patient told to exercise, lose weight and be more active. DISCHARGE MEDICATIONS: 1. Xanax 1 mg p.o. t.i.d. p.r.n. 2. Aspirin 81 mg a day. 3. Symbicort 160/4.5, 2 puffs b.i.d. 4. Temovate topical b.i.d. 5. Prilosec 40 mg p.o. daily. 6. Bentyl 20 mg p.o. q.i.d. 7. Coumadin 4 mg p.o. q.i.d. 8. Vitamin D3, 5000 units p.o. daily. 9. Multivitamin 1 tablet p.o. daily. 10. Lipitor 40 mg p.o. q.h.s. 11. Pristiq ER 50 mg p.o. daily. 12. Seroquel X-RAY 150 mg p.o. b.i.d. 13. Wellbutrin XL 150 mg p.o. daily. Follow up with Dr. Guzman in 1 week. Follow up with Dr. Adkins in 3 days. Follow up with Psych/[facility] for further recommendations from prior discharge. Care was discussed in detail with the patient. On examination, lungs are clear. CARDIOVASCULAR: First and second sounds normal.
== END 2016-08-27 13:31 | disposition home or self-care (01) ==
LOC: 3OBS 09:43
PROVIDERS: ADMIT Hospitalist; ATTEND Hospitalist
DX: R07.9 Chest pain, unspecified (principal); E78.5 Hyperlipidemia, unspecified; F17.210 Nicotine dependence, cigarettes, uncomplicated; R20.2 Paresthesia of skin; F32.9 Major depressive disorder, single episode, unspecified; F41.0 Panic disorder [episodic paroxysmal anxiety]; J44.9 Chronic obstructive pulmonary disease, unspecified; K21.9 Gastro-esophageal reflux disease without esophagitis; K58.9 Irritable bowel syndrome, unspecified; L40.9 Psoriasis, unspecified; Z72.820 Sleep deprivation; Z79.82 Long term (current) use of aspirin
CPT/HCPCS: 94640 ×3; 93017; 80048; 82550; 82553; 84484 ×2; 70551; 78452; G0378 ×3; G0379; A9500; J2060; J2785; 96374

== ENCOUNTER 2017-03-31 06:12 | Emergency (ER) | payer MEDICARE, OTHER ==
[2017-03-31] MEDS ORDERED: DIPH,PERTUS(ACELL)TETVAC-LF 0.5 ML VIAL IM ONE (06:50)
--- NOTE | 2017-03-31 06:52 | ED ---
General Adult HPI - General Source: patient, RN notes reviewed Mode of arrival: EMS Limitations: no limitations <Angel Parada - Last Filed: 03/31/17 06:50> <Ismael Rubio - Last Filed: 03/31/17 16:34> - General Chief complaint: Psychiatric Symptoms Stated complaint: mental health,ETOH Time Seen by Provider: 03/31/17 06:35 - History of Present Illness Initial comments: Patient is a 51-year-old female presenting to the emergency department with depression. Patient states she is having family problems. Patient admits to her right wrist with a razor. Patient did drink alcohol last night. Patient occasionally smokes marijuana. No hallucinations. No physical complaints. Patient denies homicidal thoughts. (Angel Parada) - Related Data Home Medications Medication Instructions Recorded Confirmed ALPRAZolam [Xanax] 1 mg PO TID PRN 10/15/15 03/31/17 Dicyclomine [Bentyl] 20 mg PO QID 08/21/16 03/31/17 Cholestyramine/Aspartame 4 gm PO TID 03/31/17 03/31/17 [Cholestyramine Light Packet] Desvenlafaxine [Pristiq ER] 100 mg PO DAILY 03/31/17 03/31/17 Diphenox-Atrop 2.5-0.025 mg 1 tab PO QID PRN 03/31/17 03/31/17 [Lomotil] Omeprazole 20 mg PO DAILY 03/31/17 03/31/17 QUEtiapine XR [SEROquel XR] 200 mg PO BID 03/31/17 03/31/17 cloNIDine HCL [Catapres] 0.2 mg PO BID@0600,1200 03/31/17 03/31/17 rOPINIRole HCL 0.5 mg PO HS 03/31/17 03/31/17 Previous Rx's Medication Instructions Recorded Atorvastatin [Lipitor] 40 mg PO HS tab 08/25/16 Allergies Allergy/AdvReac Type Severity Reaction Status Date / Time trazodone Allergy Anaphylaxis Verified 08/21/16 10:37 gabapentin AdvReac Hallucinati Verified 03/31/17 06:26 ons sertraline HCl [From Zoloft] AdvReac Rapid Verified 08/21/16 10:37 Heart Rate Review of Systems ROS Other: All systems not noted in ROS Statement are negative. Constitutional: Denies: fever Eyes: Denies: eye pain ENT: Denies: ear pain Respiratory: Denies: cough Cardiovascular: Denies: chest pain Endocrine: Denies: fatigue Gastrointestinal: Denies: abdominal pain Genitourinary: Denies: dysuria Musculoskeletal: Denies: back pain Skin: Denies: rash Neurological: Denies: headache Psychiatric: Reports: depression, suicidal thoughts <TalAngel - Last Filed: 03/31/17 06:50> ROS Other: All systems not noted in ROS Statement are negative. <Ismael Rubio - Last Filed: 03/31/17 16:34> ROS Statement: Those systems with pertinent positive or pertinent negative responses have been documented in the HPI. Past Medical History Past Medical History: COPD, GERD/Reflux, Hyperlipidemia, Skin Disorder Additional Past Medical History / Comment(s): Vertigo, IBS, frequent nausea, psoriasis History of Any Multi-Drug Resistant Organisms: None Reported Past Surgical History: Section Additional Past Surgical History / Comment(s): laser sx on cervix for dysplasia , D&C, x 2, R groin lymph node removed, colonoscopy/EGD. Past Anesthesia/Blood Transfusion Reactions: No Reported Reaction, Motion Sickness Past Psychological History: Anxiety, Depression, Panic Disorder Smoking Status: Current every day smoker Past Alcohol Use History: Abuse, Daily Past Drug Use History: Marijuana - Past Family History Father Family Medical History: No Reported History Additional Family Medical History / Comment(s): Patient does not know her father. Mother Family Medical History: Hypertension Additional Family Medical History / Comment(s): Mother is alive at age 70 with history of hypertension. Brother(s) Additional Family Medical History / Comment(s): She has one brother committed suicide. Sister(s) Additional Family Medical History / Comment(s): She has 2 sisters one has had hypertension and hysterectomy. Second sister has no major medical problems. Patient has 2 sons are healthy. <Angel Parada - Last Filed: 03/31/17 06:50> General Exam Limitations: no limitations General appearance: alert, in no apparent distress, appears intoxicated Head exam: Present: atraumatic Eye exam: Present: normal appearance, PERRL ENT exam: Present: normal oropharynx Neck exam: Present: normal inspection Respiratory exam: Present: normal lung sounds bilaterally Cardiovascular Exam: Present: regular rate, normal rhythm GI/Abdominal exam: Present: soft. Absent: tenderness Extremities exam: Present: other (Multiple abrasions right volar wrist.) Neurological exam: Present: alert Psychiatric exam: Present: depressed Skin exam: Present: abrasion <Angel Parada - Last Filed: 03/31/17 06:50> Medical Decision Making <Angel Parada - Last Filed: 03/31/17 06:50> <Ismael Rubio - Last Filed: 03/31/17 16:34> - Medical Decision Making Patient was determined to be sober was evaluated by psychiatric service he currently has suicidal or suicidal for anyone else he will be discharged (Ismael Rubio) - Lab Data Lab Results 03/31/17 Range/Units 10:20 Urine Opiates Screen Not Detected (NotDetected) Ur Oxycodone Screen Not Detected (NotDetected) Urine Methadone Screen Not Detected (NotDetected) Ur Propoxyphene Screen Not Detected (NotDetected) Ur Barbiturates Screen Not Detected (NotDetected) U Tricyclic Antidepress Not Detected (NotDetected) Ur Phencyclidine Scrn Not Detected (NotDetected) Ur Amphetamines Screen Not Detected (NotDetected) U Methamphetamines Scrn Not Detected (NotDetected) U Benzodiazepines Scrn Detected H (NotDetected) Urine Cocaine Screen Not Detected (NotDetected) U Marijuana (THC) Screen Not Detected (NotDetected) Disposition <Angel Parada - Last Filed: 03/31/17 06:50> <Ismael Rubio - Last Filed: 03/31/17 16:34> Clinical Impression: Alcohol intoxication, Adjustment reaction, Abrasion forearm Disposition: HOME SELF-CARE Condition: Good Instructions: Abrasion (ED), Abuse of Alcohol (ED), Alcohol Intoxication (ED), Anxiety (ED) Referrals: Nonstaff,Physician [REFERRING] - 1-2 days
[2017-03-31 13:41] VITALS: PULSE 78
[2017-03-31 17:00] VITALS: BP 112/68; RESP 18; TEMP 98.2
== END 2017-03-31 17:00 | disposition home or self-care (01) ==
LOC: EC 06:12
DX: S60.811A Abrasion of right wrist, initial encounter (principal); F43.21 Adjustment disorder with depressed mood; F10.129 Alcohol abuse with intoxication, unspecified; F12.90 Cannabis use, unspecified, uncomplicated; E78.5 Hyperlipidemia, unspecified; K58.9 Irritable bowel syndrome, unspecified; K21.9 Gastro-esophageal reflux disease without esophagitis; F17.200 Nicotine dependence, unspecified, uncomplicated; Z79.899 Other long term (current) drug therapy; Z88.8 Allergy status to other drugs, medicaments and biological substances; Z81.8 Family history of other mental and behavioral disorders; Z23 Encounter for immunization; X78.1XXA Intentional self-harm by knife, initial encounter
CPT/HCPCS: 80306; 82075; 90471; 90715; 99284

== ENCOUNTER 2017-09-25 03:16 | Emergency (ER) | payer MEDICARE, OTHER ==
[2017-09-25 03:26] VITALS: RESP 18
[2017-09-25] MEDS ORDERED: DIPH,PERTUS(ACELL)TETVAC-LF 0.5 ML VIAL IM ONE (03:37)
--- NOTE | 2017-09-25 05:15 | ED ---
Psych HPI - General Chief Complaint: Psychiatric Symptoms Stated Complaint: ETOH,Suicdal Time Seen by Provider: 09/25/17 03:28 Source: patient, EMS Mode of arrival: EMS - History of Present Illness Initial Comments: This patient is a 52-year-old woman brought to be evaluated for a right arm laceration. The patient states that she has history of bipolar disorder and previous cutting behavior. She states that she had been drinking tonight and has had some recent stress in her life and then she was once again engaging in the cutting behavior. She is denying suicidal ideation. She states that she does have resources for psychiatric care. She denies hallucinations, suicidal ideation or homicidal ideation. MD Complaint: feels depressed -: days(s) Associated Psychiatric Symptoms: depression History of same: Yes Quality: intermittent Improves With: none Worsens With: alcohol - Related Data Home Medications Medication Instructions Recorded Confirmed ALPRAZolam [Xanax] 1 mg PO TID PRN 10/15/15 03/31/17 Dicyclomine [Bentyl] 20 mg PO QID 08/21/16 03/31/17 Cholestyramine/Aspartame 4 gm PO TID 03/31/17 03/31/17 [Cholestyramine Light Packet] Desvenlafaxine [Pristiq ER] 100 mg PO DAILY 03/31/17 03/31/17 Diphenox-Atrop 2.5-0.025 mg 1 tab PO QID PRN 03/31/17 03/31/17 [Lomotil] Omeprazole 20 mg PO DAILY 03/31/17 03/31/17 QUEtiapine XR [SEROquel XR] 200 mg PO BID 03/31/17 03/31/17 cloNIDine HCL [Catapres] 0.2 mg PO BID@0600,1200 03/31/17 03/31/17 rOPINIRole HCL 0.5 mg PO HS 03/31/17 03/31/17 Previous Rx's Medication Instructions Recorded Atorvastatin [Lipitor] 40 mg PO HS tab 08/25/16 Allergies Allergy/AdvReac Type Severity Reaction Status Date / Time trazodone Allergy Anaphylaxis Verified 08/21/16 10:37 gabapentin AdvReac Hallucinati Verified 03/31/17 06:26 ons sertraline HCl [From Zoloft] AdvReac Rapid Verified 08/21/16 10:37 Heart Rate Review of Systems ROS Statement: Those systems with pertinent positive or pertinent negative responses have been documented in the HPI. ROS Other: All systems not noted in ROS Statement are negative. Constitutional: Denies: fever, chills Respiratory: Denies: cough Cardiovascular: Denies: chest pain Gastrointestinal: Denies: abdominal pain, vomiting Neurological: Denies: headache, weakness, numbness Psychiatric: Reports: anxiety, other (Cutting). Denies: auditory hallucinations , visual hallucinations, homicidal thoughts, suicidal thoughts Past Medical History Past Medical History: COPD, GERD/Reflux, Hyperlipidemia, Skin Disorder Additional Past Medical History / Comment(s): Vertigo, IBS, frequent nausea, psoriasis History of Any Multi-Drug Resistant Organisms: None Reported Past Surgical History: Section Additional Past Surgical History / Comment(s): laser sx on cervix for dysplasia , D&C, x 2, R groin lymph node removed, colonoscopy/EGD. Past Anesthesia/Blood Transfusion Reactions: No Reported Reaction, Motion Sickness Past Psychological History: Anxiety, Depression, Panic Disorder Smoking Status: Current every day smoker Past Alcohol Use History: Abuse, Daily Past Drug Use History: Marijuana - Past Family History Father Family Medical History: No Reported History Additional Family Medical History / Comment(s): Patient does not know her father. Mother Family Medical History: Hypertension Additional Family Medical History / Comment(s): Mother is alive at age 70 with history of hypertension. Brother(s) Additional Family Medical History / Comment(s): She has one brother committed suicide. Sister(s) Additional Family Medical History / Comment(s): She has 2 sisters one has had hypertension and hysterectomy. Second sister has no major medical problems. Patient has 2 sons are healthy. General Exam Limitations: language barrier, altered mental status General appearance: alert, in no apparent distress, appears intoxicated Head exam: Present: atraumatic, normocephalic Eye exam: Present: normal appearance ENT exam: Present: normal oropharynx Neck exam: Present: normal inspection, full ROM Respiratory exam: Present: normal lung sounds bilaterally. Absent: respiratory distress, wheezes, rales, rhonchi, stridor Cardiovascular Exam: Present: regular rate, normal rhythm, normal heart sounds. Absent: systolic murmur, diastolic murmur, rubs, gallop GI/Abdominal exam: Present: soft. Absent: distended, tenderness, guarding, rebound Extremities exam: Present: normal capillary refill Back exam: Present: normal inspection. Absent: CVA tenderness (R), CVA tenderness (L) Neurological exam: Present: alert. Absent: motor sensory deficit Skin exam: Present: warm, dry, normal color, other (There is an approximate 5cm laceration to the volar/ulnar aspect of the right forearm. No injury to the deep structures. Sensory and motor exam of the forearm and hand are normal. Normal pulses and capillary refill.) Course Vital Signs 09/25/17 09/25/17 09/25/17 03:23 06:56 07:25 Temperature 97.0 F L 98.6 F Pulse Rate 74 99 Respiratory 18 18 Rate Blood Pressure 127/68 132/42 O2 Sat by Pulse 97 96 Oximetry Procedures - Laceration Laceration #1 Consent Obtained: verbal consent Time Out Performed: Yes Indication: laceration Site: upper extremity Size (cm): 5 Description: linear Depth: simple, single layer Anesthetic Used: lidocaine 1% Anesthesia Technique: local infiltration Type of Sutures: nylon Size of Sutures: 4-0 Number of Sutures: 6 Technique: running Patient Tolerated Procedure: well, no complications Medical Decision Making - Medical Decision Making Patient's 52-year-old woman with long history of cutting behavior. She does contract for safety. She is seen by behavioral health and they agree that she is not at acute risk for suicidal behavior. - Lab Data Lab Results 09/25/17 09/25/17 Range/Units 06:52 06:52 Urine HCG, Qual Not Detected (Not Detectd) Urine Opiates Screen Not Detected (NotDetected) Ur Oxycodone Screen Not Detected (NotDetected) Urine Methadone Screen Not Detected (NotDetected) Ur Propoxyphene Screen Not Detected (NotDetected) Ur Barbiturates Screen Not Detected (NotDetected) U Tricyclic Antidepress Detected H (NotDetected) Ur Phencyclidine Scrn Not Detected (NotDetected) Ur Amphetamines Screen Not Detected (NotDetected) U Methamphetamines Scrn Not Detected (NotDetected) U Benzodiazepines Scrn Detected H (NotDetected) Urine Cocaine Screen Not Detected (NotDetected) U Marijuana (THC) Screen Not Detected (NotDetected) Disposition Clinical Impression: Laceration, Deliberate self-cutting Disposition: HOME SELF-CARE Condition: Good Instructions: Laceration (ED) Referrals: Vipul Adkins MD [Primary Care Provider] - 1-2 days
[2017-09-25 06:58] VITALS: BP 132/42; PULSE 99
[2017-09-25 07:26] LABS: Amphetamine Screen,Urine Not Detected (NotDetected); Barbiturate Screen,Urine Not Detected (NotDetected); Benzodiazepines Screen,Urine Detected (NotDetected); Cocaine Screen,Urine Not Detected (NotDetected); Methadone Screen, Urine Not Detected (NotDetected); Opiate Screen,Urine Not Detected (NotDetected); Oxycodone Screen, Urine Not Detected (NotDetected); Phencyclidine Screen,Urine Not Detected (NotDetected); Tricyclic Antidepressant,Urine Detected (NotDetected); Urn Cannabinoid Scrn Not Detected (NotDetected)
[2017-09-25 07:32] VITALS: TEMP 98.6
== END 2017-09-25 07:32 | disposition home or self-care (01) ==
LOC: EC 03:16
DX: S51.811A Laceration without foreign body of right forearm, initial encounter (principal); R41.82 Altered mental status, unspecified; F10.129 Alcohol abuse with intoxication, unspecified; E78.5 Hyperlipidemia, unspecified; K21.9 Gastro-esophageal reflux disease without esophagitis; K58.9 Irritable bowel syndrome, unspecified; F31.9 Bipolar disorder, unspecified; F17.200 Nicotine dependence, unspecified, uncomplicated; Z79.899 Other long term (current) drug therapy; Z88.8 Allergy status to other drugs, medicaments and biological substances; Z81.8 Family history of other mental and behavioral disorders; Z23 Encounter for immunization; X78.9XXA Intentional self-harm by unspecified sharp object, initial encounter
CPT/HCPCS: 12002; 80306; 81025; 82075; 90471; 90715; 99285

== ENCOUNTER 2018-05-30 02:59 | Emergency (ER) | payer MEDICARE, OTHER ==
--- NOTE | 2018-05-30 03:08 | ED ---
Overdose HPI <Azucena Crockett - Last Filed: 05/30/18 05:51> <Gera Jackson - Last Filed: 05/30/18 11:42> - General Stated Complaint: overdose Time Seen by Provider: 05/30/18 03:00 - History of Present Illness Initial Comments: Lacey is a 52-year-old female with a history of depression for which she follows at [facility] at [place]. Patient is brought to the ED today via EMS for evaluation of depression, intoxication and suicidal thoughts. Patient reports she's been drinking heavily, she made superficial lacerations to her bilateral wrists, in addition she states that she took 6-8 of her buspar , she is uncertain what the dosage of these are. (Azucena Crockett) - Related Data Home Medications Medication Instructions Recorded Confirmed ALPRAZolam [Xanax] 1 mg PO TID PRN 10/15/15 03/31/17 Dicyclomine [Bentyl] 20 mg PO QID 08/21/16 03/31/17 Cholestyramine/Aspartame 4 gm PO TID 03/31/17 03/31/17 [Cholestyramine Light Packet] Desvenlafaxine [Pristiq ER] 100 mg PO DAILY 03/31/17 03/31/17 Diphenox-Atrop 2.5-0.025 mg 1 tab PO QID PRN 03/31/17 03/31/17 [Lomotil] Omeprazole 20 mg PO DAILY 03/31/17 03/31/17 QUEtiapine XR [SEROquel XR] 200 mg PO BID 03/31/17 03/31/17 cloNIDine HCL [Catapres] 0.2 mg PO BID@0600,1200 03/31/17 03/31/17 rOPINIRole HCL 0.5 mg PO HS 03/31/17 03/31/17 Previous Rx's Medication Instructions Recorded Atorvastatin [Lipitor] 40 mg PO HS tab 08/25/16 Allergies Allergy/AdvReac Type Severity Reaction Status Date / Time trazodone Allergy Anaphylaxis Verified 05/30/18 03:08 gabapentin AdvReac Hallucinati Verified 05/30/18 03:08 ons sertraline HCl [From Zoloft] AdvReac Rapid Verified 05/30/18 03:08 Heart Rate Review of Systems ROS Other: All systems not noted in ROS Statement are negative. <Javid Crockettssica P - Last Filed: 05/30/18 05:51> ROS Other: All systems not noted in ROS Statement are negative. <Gera Jackson - Last Filed: 05/30/18 11:42> ROS Statement: Those systems with pertinent positive or pertinent negative responses have been documented in the HPI. Past Medical History Past Medical History: COPD, GERD/Reflux, Hyperlipidemia, Skin Disorder Additional Past Medical History / Comment(s): Vertigo, IBS, frequent nausea, psoriasis History of Any Multi-Drug Resistant Organisms: None Reported Past Surgical History: Section Additional Past Surgical History / Comment(s): laser sx on cervix for dysplasia , D&C, x 2, R groin lymph node removed, colonoscopy/EGD. Past Anesthesia/Blood Transfusion Reactions: No Reported Reaction, Motion Sickness Past Psychological History: Anxiety, Depression, Panic Disorder Smoking Status: Current every day smoker Past Alcohol Use History: Abuse, Daily Past Drug Use History: Marijuana - Past Family History Father Family Medical History: No Reported History Additional Family Medical History / Comment(s): Patient does not know her father. Mother Family Medical History: Hypertension Additional Family Medical History / Comment(s): Mother is alive at age 70 with history of hypertension. Brother(s) Additional Family Medical History / Comment(s): She has one brother committed suicide. Sister(s) Additional Family Medical History / Comment(s): She has 2 sisters one has had hypertension and hysterectomy. Second sister has no major medical problems. Patient has 2 sons are healthy. <Azucena Crockett P - Last Filed: 05/30/18 05:51> General Exam <Azucena Crockett P - Last Filed: 05/30/18 05:51> <Gera Jackson - Last Filed: 05/30/18 11:42> - General Exam Comments Initial Comments: Physical Exam GENERAL: Appears intoxicated HENT: Normocephalic, Atraumatic. EYES: PERRL, EOMI PULMONARY: Unlabored respirations. CARDIOVASCULAR: There is a regular rate and rhythm without any murmurs gallops or rubs. ABDOMEN: Soft and nontender with normal bowel sounds. SKIN: Superficial lacerations on bilateral wrists : Deferred NEUROLOGIC: Patient is alert and oriented x3. Moving all extremities spontaneously Slurred speech MUSCULOSKELETAL: Normal extremities with adequate strength and full range of motion. No lower extremity swelling or edema. No calf tenderness. PSYCHIATRIC: Depressed, suicidal Limitations: no limitations (Azucena Crockett) Vital Signs 05/30/18 05/30/18 03:01 09:21 Temperature 98 F 98.6 F Pulse Rate 75 90 Respiratory 20 18 Rate Blood Pressure 135/73 121/74 O2 Sat by Pulse 99 96 Oximetry Medical Decision Making - Lab Data Result diagrams: 05/30/18 03:35 05/30/18 03:35 <Azucena Crokcett - Last Filed: 05/30/18 05:51> - Lab Data Result diagrams: 05/30/18 03:35 05/30/18 03:35 <Gera Jackson - Last Filed: 05/30/18 11:42> - Medical Decision Making Patient was seen and evaluated history was obtained from the patient and EMS patient appears to be intoxicated, reports that she took BuSpar A tox workup was ordered EKG was reviewed, prolong QT was noted Labs were reviewed, mildly elevated transaminases Patient care was discussed with the [facility] who recommended supportive care and state that when the patient is at baseline mental status she is medically cleared, they do not recommend any prolonged monitoring or evaluation Blood alcohol resulted at greater than 190, patient will be sober between 7 and 9 AM Patient care is signed out to Dr. Jackson who will follow-up on patient's psychiatric evaluation (Azucena Crockett) Patient was evaluated once she was sober. They came up with a plan the patient states she will follow-up and she will be safe until that time. (Gera Jackson ) - Lab Data Lab Results 05/30/18 05/30/18 05/30/18 Range/Units 03:35 03:35 03:35 WBC 10.1 (3.8-10.6) k/uL RBC 4.24 (3.80-5.40) m/uL Hgb 13.3 (11.4-16.0) gm/dL Hct 39.2 (34.0-46.0) % MCV 92.3 (80.0-100.0) fL MCH 31.3 (25.0-35.0) pg MCHC 33.9 (31.0-37.0) g/dL RDW 13.4 (11.5-15.5) % Plt Count 200 (150-450) k/uL Neutrophils % 70 % Lymphocytes % 24 % Monocytes % 4 % Eosinophils % 0 % Basophils % 0 % Neutrophils # 7.0 (1.3-7.7) k/uL Lymphocytes # 2.4 (1.0-4.8) k/uL Monocytes # 0.4 (0-1.0) k/uL Eosinophils # 0.0 (0-0.7) k/uL Basophils # 0.0 (0-0.2) k/uL PT (9.0-12.0) sec INR (<1.2) Sodium 140 (137-145) mmol/L Potassium 3.8 (3.5-5.1) mmol/L Chloride 103 (98-107) mmol/L Carbon Dioxide 28 (22-30) mmol/L Anion Gap 9 mmol/L BUN 8 (7-17) mg/dL Creatinine 0.68 (0.52-1.04) mg/dL Est GFR (CKD-EPI)AfAm >90 (>60 ml/min/1.73 sqM) Est GFR (CKD-EPI)NonAf >90 (>60 ml/min/1.73 sqM) Glucose 108 H (74-99) mg/dL Plasma Lactic Acid Ismael 0.7 (0.7-2.0) mmol/L Calcium 8.9 (8.4-10.2) mg/dL Magnesium 2.0 (1.6-2.3) mg/dL Total Bilirubin 0.3 (0.2-1.3) mg/dL AST 111 H (14-36) U/L ALT 138 H (9-52) U/L Alkaline Phosphatase 95 (38-126) U/L Total Protein 7.3 (6.3-8.2) g/dL Albumin 4.2 (3.5-5.0) g/dL Urine HCG, Qual (Not Detectd) Salicylates <1.0 mg/dL Urine Opiates Screen (NotDetected) Ur Oxycodone Screen (NotDetected) Urine Methadone Screen (NotDetected) Ur Propoxyphene Screen (NotDetected) Acetaminophen <10.0 ug/mL Ur Barbiturates Screen (NotDetected) U Tricyclic Antidepress (NotDetected) Ur Phencyclidine Scrn (NotDetected) Ur Amphetamines Screen (NotDetected) U Methamphetamines Scrn (NotDetected) U Benzodiazepines Scrn (NotDetected) Urine Cocaine Screen (NotDetected) U Marijuana (THC) Screen (NotDetected) Serum Alcohol 193 mg/dL 05/30/18 05/30/18 05/30/18 Range/Units 03:35 03:35 03:35 WBC (3.8-10.6) k/uL RBC (3.80-5.40) m/uL Hgb (11.4-16.0) gm/dL Hct (34.0-46.0) % MCV (80.0-100.0) fL MCH (25.0-35.0) pg MCHC (31.0-37.0) g/dL RDW (11.5-15.5) % Plt Count (150-450) k/uL Neutrophils % % Lymphocytes % % Monocytes % % Eosinophils % % Basophils % % Neutrophils # (1.3-7.7) k/uL Lymphocytes # (1.0-4.8) k/uL Monocytes # (0-1.0) k/uL Eosinophils # (0-0.7) k/uL Basophils # (0-0.2) k/uL PT 10.4 (9.0-12.0) sec INR 1.1 (<1.2) Sodium (137-145) mmol/L Potassium (3.5-5.1) mmol/L Chloride (98-107) mmol/L Carbon Dioxide (22-30) mmol/L Anion Gap mmol/L BUN (7-17) mg/dL Creatinine (0.52-1.04) mg/dL Est GFR (CKD-EPI)AfAm (>60 ml/min/1.73 sqM) Est GFR (CKD-EPI)NonAf (>60 ml/min/1.73 sqM) Glucose (74-99) mg/dL Plasma Lactic Acid Ismael (0.7-2.0) mmol/L Calcium (8.4-10.2) mg/dL Magnesium (1.6-2.3) mg/dL Total Bilirubin (0.2-1.3) mg/dL AST (14-36) U/L ALT (9-52) U/L Alkaline Phosphatase (38-126) U/L Total Protein (6.3-8.2) g/dL Albumin (3.5-5.0) g/dL Urine HCG, Qual Not Detected (Not Detectd) Salicylates mg/dL Urine Opiates Screen Not Detected (NotDetected) Ur Oxycodone Screen Not Detected (NotDetected) Urine Methadone Screen Not Detected (NotDetected) Ur Propoxyphene Screen Not Detected (NotDetected) Acetaminophen ug/mL Ur Barbiturates Screen Not Detected (NotDetected) U Tricyclic Antidepress Detected H (NotDetected) Ur Phencyclidine Scrn Not Detected (NotDetected) Ur Amphetamines Screen Not Detected (NotDetected) U Methamphetamines Scrn Not Detected (NotDetected) U Benzodiazepines Scrn Detected H (NotDetected) Urine Cocaine Screen Not Detected (NotDetected) U Marijuana (THC) Screen Not Detected (NotDetected) Serum Alcohol mg/dL Disposition <Azucena Crockett - Last Filed: 05/30/18 05:51> Is patient prescribed a controlled substance at d/c from ED?: No Time of Disposition: 11:41 <Gera Jackson - Last Filed: 05/30/18 11:42> Clinical Impression: Laceration of wrist, left, Depression, Suicidal ideation, Alcohol use disorder Disposition: HOME SELF-CARE Condition: Good Instructions: Depression (ED) Referrals: Vipul Adkins MD [Primary Care Provider] - 1-2 days
[2018-05-30 03:54] LABS: Basophils % (A) 0 %; Eosinophils % (A) 0 %; HCT 39.2 % (34.0-46.0); HGB 13.3 gm/dL (11.4-16.0); Lymphocytes # (A) 2.4 k/uL (1.0-4.8); Lymphocytes % (A) 24 %; MCH 31.3 pg (25.0-35.0); MCHC 33.9 g/dL (31.0-37.0); MCV 92.3 fL (80.0-100.0); Mean Platelet Volume 6.6; Monocytes # (A) 0.4 k/uL (0-1.0); Monocytes % (A) 4 %; Neutrophils % (A) 70 %; Platelet Count 200 k/uL (150-450); RBC 4.24 m/uL (3.80-5.40); RDW 13.4 % (11.5-15.5); WBC 10.1 k/uL (3.8-10.6)
[2018-05-30 04:00] LABS: INR 1.1 (<1.2); Prothrombin Time 10.4 sec (9.0-12.0)
[2018-05-30 04:05] LABS: ALT 138 U/L (9-52); AST 111 U/L (14-36); Acetaminophen <10.0 ug/mL; Albumin 4.2 g/dL (3.5-5.0); Alkaline Phosphatase 95 U/L (38-126); Anion Gap 9 mmol/L; Blood Urea Nitrogen 8 mg/dL (7-17); Calcium 8.9 mg/dL (8.4-10.2); Carbon Dioxide 28 mmol/L (22-30); Chloride 103 mmol/L (98-107); Glucose 108 mg/dL (74-99); Potassium 3.8 mmol/L (3.5-5.1); Salicylate <1.0 mg/dL; Sodium 140 mmol/L (137-145); Total Bilirubin 0.3 mg/dL (0.2-1.3); Total Protein 7.3 g/dL (6.3-8.2)
[2018-05-30 04:08] LABS: Amphetamine Screen,Urine Not Detected (NotDetected); Barbiturate Screen,Urine Not Detected (NotDetected); Benzodiazepines Screen,Urine Detected (NotDetected); Cocaine Screen,Urine Not Detected (NotDetected); Methadone Screen, Urine Not Detected (NotDetected); Opiate Screen,Urine Not Detected (NotDetected); Oxycodone Screen, Urine Not Detected (NotDetected); Phencyclidine Screen,Urine Not Detected (NotDetected); Tricyclic Antidepressant,Urine Detected (NotDetected); Urn Cannabinoid Scrn Not Detected (NotDetected)
[2018-05-30 04:28] LABS: Alcohol 193 mg/dL
[2018-05-30] MEDS ORDERED: DIPH,PERTUS(ACELL)TETVAC-LF 0.5 ML VIAL IM ONE (05:51)
[2018-05-30] MEDS ORDERED: IBUPROFEN 600 MG TAB PO STA ×2 (06:12→06:16)
[2018-05-30 12:02] VITALS: BP 164/99; PULSE 73; RESP 19; TEMP 97.6
== END 2018-05-30 12:01 | disposition home or self-care (01) ==
LOC: EC 02:59
DX: S61.512A Laceration without foreign body of left wrist, initial encounter (principal); S61.511A Laceration without foreign body of right wrist, initial encounter; F32.9 Major depressive disorder, single episode, unspecified; R45.851 Suicidal ideations; F10.129 Alcohol abuse with intoxication, unspecified; R74.0 Nonspecific elevation of levels of transaminase and lactic acid dehydrogenase [LDH]; T43.592A Poisoning by other antipsychotics and neuroleptics, intentional self-harm, initial encounter; K21.9 Gastro-esophageal reflux disease without esophagitis; K58.9 Irritable bowel syndrome, unspecified; F17.200 Nicotine dependence, unspecified, uncomplicated; Z88.8 Allergy status to other drugs, medicaments and biological substances; Z79.899 Other long term (current) drug therapy; Z23 Encounter for immunization; Y90.6 Blood alcohol level of 120-199 mg/100 ml; Z81.8 Family history of other mental and behavioral disorders; X78.8XXA Intentional self-harm by other sharp object, initial encounter
CPT/HCPCS: 82075; 36415; 93005; 80053; 83605; 83735; 85025; 85610; 81025; 80306; 83520 ×2; 90715; 99285; 90471; G0480; 80320